=== PATIENT | female | born 1995 | race Caucasian/White ===

== ENCOUNTER 2025-01-18 15:11 | Emergency (ER) | payer BC, SELFPAY ==
[2025-01-18 15:14] VITALS: BP 117/81
[2025-01-18 17:50] LABS: Hematocrit 34.3 % (37.0-47.0); Hemoglobin 11.5 g/dL (12.0-16.0); Mean Corp Hgb Conc. 33.5 g/dL (33.0-37.0); Mean Corpuscular Volume 87.3 fL (81.0-99.0); Nucleated Red Blood Cells % 0 %; Platelet Count 301 10^3/uL (130-400); Red Cell Dist. Width 12.1 % (11.5-14.5)
[2025-01-18 17:51] LABS: Urine Character Clear (Clear)
[2025-01-18 17:56] LABS: Urine Squamous Cell 16-20 /LPF (Few)
[2025-01-18 17:58] LABS: Urine Red Blood Cell 0-2 /HPF (0-2)
[2025-01-18 18:14] LABS: ALT (SGPT) 26 U/L (0-35); AST (SGOT) 22 U/L (14-36); Albumin 4.3 g/dl (3.5-5.0); Alkaline Phosphatase 66 U/L (38-126); Blood Urea Nitrogen 13 mg/dl (7-17); Calcium 9.4 mg/dl (8.4-10.2); Carbon Dioxide 30 mmol/L (22-30); Chloride 104 mmol/L (98-107); Glucose 93 mg/dl (70-99); Potassium 4.5 mmol/L (3.5-5.1); Sodium 138 mmol/L (135-145); Total Protein 7.3 g/dl (6.3-8.2); eGFR > 60.00
--- NOTE | 2025-01-18 18:24 | ED.GENMED ---
History of Present Illness
General
Chief Complaint: Crisis Evaluation
Time Seen by Provider: 01/18/25 16:45
Nursing documentation reviewed up to this point in time: agreed with
History of Present Illness
History of Present Illness:
29-year-old female presents to the ER for evaluation after suicide attempt while at a residential program. Patient has an extensive prior mental health history, including 10 significant suicide attempts. She had most recently been hospitalized at
the ICU at [facility] prior to arrival to this of facility. She states that she got triggered and went outside and found some berries which she ate. She reports she ate at least 20 of these blueberries. She states that she had felt nauseated prior
to my assessment, now has no complaints or concerns. Has been taking all of her routine prescription medications without any difficulty. She denies feeling suicidal at the current time.
Review of Systems
Review of Systems
Allergies reviewed?: Yes
Phy Exam
Physical Exam
Physical Exam:
Patient is awake, alert, appears in no acute distress, head is NCAT, PERRL, EOMI mucous membranes moist, conjunctiva pink, heart regular rate and rhythm without murmurs or ectopy, lungs are clear to auscultation without wheezes rales or rhonchi, no
JVD, abdomen is soft and nontender on palpation, extremities without edema, GCS is 15, healing appearing abrasion present left proximal forearm at least 1 week old, no other skin lesions seen
Course
Orders/Labs/Results
Orders:
Orders
01/18/25 15:24
1:1 Observation - Suicide/ Violent Behavior As Directed
01/18/25 16:51
Electrocardiogram (*1) Urgent
Reason for Study: Palpitations
EKG- Treatment ONCE
Test Result ONCE
01/18/25 17:31
Complete Blood Count/With Diff Urgent
Comprehensive Metabolic Panel Urgent
Drug Screen, Serum [Serum Drug Screen] [S] Urgent
, Urine Qualitative Screen [HCG, Urine Qualitative Screen] Urgent
Date Specimen was Collected: 01/18/25
Time Specimen was Collected: 17:20
Urinalysis Urgent
Date Specimen was Collected: 01/18/25
Time Specimen was Collected: 17:20
Urine Drug Abuse Screen Urgent
Date Specimen was Collected: 01/18/25
Time Specimen was Collected: 17:20
Urine Microscopic Urgent
Date Specimen was Collected: 01/18/25
Time Specimen was Collected: 17:20
01/18/25 19:05
Crisis Consult Urgent
Reason for Consult: suicide attempt
01/18/25 22:00
Prazosin HCl [Minipress] 1 mg PO HS
Quetiapine Fumarate [Seroquel] 250 mg PO HS
01/18/25 22:02
Quetiapine Fumarate [Seroquel] 250 mg PO HS
01/18/25 22:15
COVID-19 Antigen Urgent
Source: Nasal Swab
01/19/25 08:00
Metformin Extended Release [Glucophage Xr Extended Release] 500 mg PO DAILY
Abnormal Lab Results
01/18/25
17:31
RBC 3.93 L 10^6/uL
(4.20-5.40)
Hgb 11.5 L g/dL
(12.0-16.0)
Hct 34.3 L %
(37.0-47.0)
Ur Leukocyte Esterase 1+ A
(Negative)
Urine Bacteria Few A
(Negative)
01/18/25 17:31
01/18/25 17:31
CBC and electrolytes within normal limits
Vital Signs
Initial and Last Documented VS:
Initial Vital Signs
Temp Pulse Resp BP Pulse Ox
99 F 78 16 117/81 98
01/18/25 15:14 01/18/25 15:14 01/18/25 15:14 01/18/25 15:14 01/18/25 15:14
Last Documented Vital Signs
Temp Pulse Resp BP Pulse Ox
99 F 51 16 130/79 99
01/18/25 15:14 01/18/25 22:16 01/18/25 19:18 01/18/25 22:16 01/18/25 19:18
MDM/Problems Addressed
Differential Diagnosis Includes:
differential diagnosis to consider but not limited to acute exacerbation of mental illness, electrolyte dyscrasia, adverse effect from ingestion of eun
*Pulse Oximetry
SaO2: 98
Oxygen Mode of Delivery: Room air
Patient hypoxic: no
*EKG
Interpreted by ED Provider?: Yes (I independently viewed and interpreted twelve-lead EKG showing normal sinus rhythm, rate 64, normal axis, normal intervals, this is a normal tracing, no prior for comparison)
*[place] T[place] Line Interpretation
Rate: normal (I independently viewed and interpreted rhythm strip showing normal sinus rhythm, no ectopy)
*Critical Care Note
Total Time (30-74mins, 75-104mins- exclusive of procedures): Not Applicable
Update Note
Update Note:
Patient did break some of the berries with her which are dark purple in color with a hot pink liquid expressed. Given this season, I image searched a couple of potential berries, patient believes that it was poke weed berries, though she did admit
that there was another vine that she got another different blue very off of. In total she ingested 20 berries of unknown quantity. Will discuss with tox
1839: I reviewed full patient presentation with Dr. Cantor, toxicology. He reports that poke weed ingestion usually has significant GI symptoms. Otherwise for other unknown ingestions would recommend 6 hours of observation and EKG. Of all
intervals are within normal limits and patient has no symptoms, would consider her to be medically cleared for psychiatric care.
1903: Pt is medially cleared for psych placement
2222: Patient's routine nighttime meds are ordered. Social work is working on placement for the patient. Full patient care transferred to Dr. Zimmerman at end of shift for further observation
ED Attending Note
-
Portions of this chart may have been created with voice recognition software.� Occasional wrong word or��sound alike� substitutions may have occurred due to the inherent limitations of voice recognition software.
Discharge Plan
Departure
Referrals:
UNKNOWN - PT DOES,NOT KNOW [Family Provider]
Interventions
Interventions:
*Risk Screen - Suicide Last Done: 01/18/25 15:15
*General Assessment Last Done: 01/18/25 15:15
*Neglect/Abuse Screening Last Done: 01/18/25 15:15
*ED- Fall Risk Assessment Last Done: 01/18/25 15:15
*ED COVID-19 Vaccine History Last Done: 01/18/25 15:15
*ED Influenza Vaccine History Last Done: 01/18/25 15:15
ED-Psychological Assessment Last Done: 01/18/25 15:25
Discharge Date and Time
Print Language: UKRAINIAN
[2025-01-18 18:33] LABS: HCG, Urine Qualitative Screen Negative
[2025-01-18] MEDS: MINIPRESS 1 MG PO (22:16)
[2025-01-18] MEDS: SEROQUEL 250 MG PO (22:17)
[2025-01-18 22:35] LABS: COVID-19 Antigen Negative (Negative)
== END 2025-01-19 02:20 ==
LOC: EMR 15:11
PROVIDERS: EMERGENCY PHYSICIAN Emergency Medicine
DX: T14.91XA Suicide attempt, initial encounter (principal); Y92.9 Unspecified place or not applicable
CPT/HCPCS: 99285; 80053; 80306; 80307; 81003; 81015; 81025; 85025; 87811; 93005